=== PATIENT | male | born 1980 | race Hispanic/Latino ===

== ENCOUNTER 2021-06-07 09:32 | Emergency (ER) | payer OTHER ==
[~2021-06-07] VITALS: Ht 182.9 cm; Wt 90.7 kg
[2021-06-07] MEDS ORDERED: ONDANSETRON ODT8 MG PO (11:14)
== END 2021-06-07 12:51 | disposition home or self-care (01) ==
LOC: ED 09:32
DX: U07.1 COVID-19 (principal)
CPT/HCPCS: 99284; C9803; U0003

== ENCOUNTER 2024-12-29 09:07 | Emergency (ER) | payer OTHER ==
[~2024-12-29] VITALS: Ht 182.9 cm; Wt 95.7 kg
[~2024-12-29 09:07] MED LIST: ONDANSETRON ODT8 MG PO
[2024-12-29] MEDS ORDERED: PREDNISONE20 MG PO (10:39)
[2024-12-29 10:45] VITALS: BP 134/78
== END 2024-12-29 10:45 | disposition home or self-care (01) ==
LOC: ED 09:07
DX: M25.572 Pain in left ankle and joints of left foot (principal)
CPT/HCPCS: 73610; 99283

== ENCOUNTER 2025-04-02 13:51 | Emergency (ER) | payer OTHER | END 2025-04-02 15:41 | disposition home or self-care (01) | LOC: ED 13:51 | DX: S61.233A Puncture wound without foreign body of left middle finger without damage to nail, initial encounter (principal); W29.8XXA Contact with other powered hand tools and household machinery, initial encounter; Y93.H3 Activity, building and construction; Y99.0 Civilian activity done for income or pay ==